=== PATIENT | female | born 1955 | race Two or more races ===

== ENCOUNTER 2021-01-19 06:08 | Day surgery (SDC) | payer OTHER ==
[~2021-01-19] VITALS: Ht 167.6 cm; Wt 76.7 kg
[~2021-01-19 06:08] MED LIST: ATEN-60 PO
[2021-01-19] MEDS ORDERED: ceFAZolin 1GM/50ML 100 ML IV ONE (07:18)
[2021-01-19] MEDS ORDERED: IOHEXOL 300 MG/ML 100ML BOTTLE IJ ONE (07:18)
[2021-01-19] MEDS ORDERED: fentaNYL CITRATE 100 MCG/2 ML VL ONE (07:39)
[2021-01-19] MEDS ORDERED: MEPERIDINE HCL (50 MG/ML) 1 ML VIAL ONE (07:40)
[2021-01-19] MEDS ORDERED: MIDAZOLAM HCL 2MG/2ML 2ml VIAL (1mg/ml) ONE (07:40)
[2021-01-19] MEDS ORDERED: DexAMETHasone SOD PHOS 10MG/1ML VIAL INJ ONE (07:58)
[2021-01-19] MEDS ORDERED: PROPOFOL 10 MG/ML 20 ML IV ONE (07:58)
[2021-01-19] MEDS ORDERED: MIDAZOLAM HCL 2MG/2ML 2ml VIAL (1mg/ml) IV PRN (08:00)
[2021-01-19] MEDS ORDERED: ONDANSETRON HCL 4 MG/2 ML VIAL IV PRN (08:00)
[2021-01-19] MEDS ORDERED: LABETALOL HCL 5 MG/ML 4ML SYRINGE IV PRN (08:00)
[2021-01-19] MEDS ORDERED: ePHEDrine SULFATE 50 MG/ML AMP IV PRN (08:00)
[2021-01-19] MEDS ORDERED: MORPHINE SULFATE INJECTION 2 MG/ML SYRG IV PRN (08:00)
[2021-01-19] MEDS ORDERED: hydrALAZINE HCL 20 MG/ML VL IV PRN (08:00)
[2021-01-19] MEDS ORDERED: HYDROmorphone HCL 2 MG/ML VL IV PRN (08:00)
[2021-01-19] MEDS ORDERED: ETOMIDATE (2MG/ML) 20ML VIAL IV ONE (08:02)
[2021-01-19 09:30] VITALS: BP 151/91
[2021-01-19] MEDS ORDERED: SUCCINYLCHOLINE CHLORIDE 20 MG/ML 10ML VIAL IV ONE (17:12)
== END 2021-01-19 09:50 | disposition home or self-care (01) ==
LOC: SUR 06:08
PROVIDERS: ATTEND Urology
DX: N20.0 Calculus of kidney (principal); I10 Essential (primary) hypertension; Z20.822 Contact with and (suspected) exposure to COVID-19; Z98.890 Other specified postprocedural states; Z79.899 Other long term (current) drug therapy; I25.10 Atherosclerotic heart disease of native coronary artery without angina pectoris
CPT/HCPCS: 52351; 74018; 74420; C1769; J0330; J0690; J1100; J2175; J2250; J2704; J3010; J7030; Q9967; U0003; 76000